=== PATIENT | female | born 1955 | race Caucasian/White ===

== ENCOUNTER 2016-10-19 06:21 | Inpatient (IN) | payer OTHER ==
[2016-10-11 10:08] VITALS: BMI 35.0
--- NOTE | 2016-10-11 10:40 | PAT Medication Instructions ---
Service Date Oct 11, 2016. Current Home Medication List Bupropion (Wellbutrin), 100 MG PO QAM Diazepam (Valium), 5 MG PO BID PRN for ANXIETY Hydrocodone/Acetaminophen 10MG/325MG (Holden 10MG/325MG), 1 TAB PO Q4H PRN for Pain Naproxen (Aleve), 440 MG PO PRN Triamterene/Hctz (Dyazide 37.5MG/25MG), 1 TAB PO QAM Venlafaxine Hcl (Effexor), 150 MG PO HS [Inhaler], 2 PUFFS INH Q4H PRN for clinical transformation specialist Instructions For Your Scheduled Surgery - Check with surgeon for instructions: Naproxen (Aleve), 440 MG PO PRN - Hold the following medications the morning of surgery: Triamterene/Hctz (Dyazide 37.5MG/25MG), 1 TAB PO QAM - Take the following medications the morning of surgery with a sip of water: [Inhaler], 2 PUFFS INH Q4H PRN for RN Diazepam (Valium), 5 MG PO BID PRN for ANXIETY Bupropion (Wellbutrin), 100 MG PO QAM Hydrocodone/Acetaminophen 10MG/325MG (Holden 10MG/325MG), 1 TAB PO Q4H PRN for Pain (okay to take up to 4 hours prior to surgery if needed) - Take the following medications as scheduled the night before surgery: [Inhaler], 2 PUFFS INH Q4H PRN for RN Venlafaxine Hcl (Effexor), 150 MG PO HS Diazepam (Valium), 5 MG PO BID PRN for ANXIETY Hydrocodone/Acetaminophen 10MG/325MG (Holden 10MG/325MG), 1 TAB PO Q4H PRN for Pain If you have any questions please call us at [phone] (Lisa Escamilla PA-C) or [phone] or [phone]
--- NOTE | 2016-10-11 11:25 | DIAGNOSTIC IMAGING REPORT ---
TWO VIEW CHEST CLINICAL HISTORY: Preoperative examination. FINDINGS: PA and lateral chest radiographs are compared to study dated 11/25/2013. The cardiomediastinal silhouette is unremarkable. There is prominence of the left hilar soft tissues. Atherosclerotic calcification is noted in the thoracic aorta. Chronic interstitial thickening is similar to previous. No airspace consolidation or pleural effusion is identified. There is no pneumothorax. The skeletal structures are osteopenic. Degenerative change and mild scoliosis are noted in the thoracic spine. Cholecystectomy clips are identified in the right upper quadrant. IMPRESSION: 1. No active disease in the chest. 2. There is fullness of the left hilar soft tissues. This may be related to prominence of the pulmonary artery. Follow-up with a contrast-enhanced CT scan of the chest is recommended for further assessment and to exclude underlying adenopathy/lesion. Electronically signed by: Celso Delvalle M.D. 10/11/2016 11:23 AM Dictated Date/Time: 10/11/2016 11:20 AM
[2016-10-11 11:32] LABS: BASO % 0.7 %; BASO ABS # 0.05 K/uL (0-0.2); COMPLETE YES; EOS % 14.9 %; HEMATOCRIT 38.6 % (37-47); IG% 0.1 %; LYMPH % 25.3 %; MEAN CELL VOLUME 87.7 fL (80-100); MEAN CORPUSCULAR HEMOGLOBIN 29.8 pg (25-34); MEAN CORPUSCULAR HGB CONC 33.9 g/dl (32-36); MEAN PLATELET VOLUME 10.5 fL (7.4-10.4); MONO % 6.8 %; NEUT % 52.2 %; PLATELET COUNT 287 K/uL (130-400); WHITE BLOOD COUNT 7.11 K/uL (4.8-10.8)
[2016-10-11 11:32] LABS: URINE APPEARANCE CLEAR (CLEAR); URINE BILIRUBIN NEG (NEG); URINE COLOR YELLOW; URINE NITRITE NEG (NEG); URINE SPECIFIC GRAVITY 1.014 (1.000-1.030); UROBILINOGEN NEG (NEG)
[2016-10-11 11:40] LABS: PROTHROMBIN TIME (PATIENT) 10.7 SECONDS (9.0-12.0)
[2016-10-11 11:48] LABS: MANUAL MICROSCOPIC REQUIRED? NO; REVIEW REQ? NO
[2016-10-11 12:01] LABS: BUN/CREATININE RATIO 17.1 (10-20); CALCIUM 9.4 mg/dl (8.5-10.1); CREATININE 0.97 mg/dl (0.60-1.20); POTASSIUM 3.2 mmol/L (3.5-5.1)
--- NOTE | 2016-10-17 13:52 | HISTORY & PHYSICAL EXAMINATION ---
DATE OF ADMISSION: 10/19/2016 CHIEF COMPLAINT: Primary osteoarthritis of the left knee. HISTORY OF PRESENT ILLNESS: Katherine is a pleasant 61-year-old female who has been dealing with chronic left knee pain. I did a right total knee arthroplasty on her 2-1/2 years ago and she has done very well from that. Unfortunately, she has continued to have left knee pain. X-rays and clinical examination are diagnostic for primary osteoarthritis of the knee. After failing years of conservative treatment, she has elected to proceed with a total knee arthroplasty. PAST MEDICAL HISTORY: Significant for depression and hypertension. PAST SURGICAL HISTORY: For carpal tunnel release, knee arthroscopy of the right knee, hysterectomy, multiple lumbar surgeries and a right total knee arthroplasty. ALLERGIES: None. FAMILY HISTORY: Noncontributory. MEDICATIONS: Include hydrocodone every 4 hours as needed for back pain, Effexor 150 mg at night and Dyazide 1 tablet in the morning. SOCIAL HISTORY: She is . She rarely drinks and she is mostly sedentary. REVIEW OF SYSTEMS: She complains of left knee pain. All other pertinent review of systems are negative. PHYSICAL EXAMINATION: GENERAL: She is awake, alert and oriented x3. She is in no apparent distress. She is very pleasant. HEENT: Pupils equal, round and reactive to light. Extraocular motion intact. Oral mucosa is pink and moist. HEART: Regular rate per radial pulse. LUNGS: Johanna symmetrically bilaterally with no audible breath sounds. ABDOMEN: Soft, nontender, nondistended. MUSCULOSKELETAL: On physical examination of the left knee, she does have a mild effusion. She has limited range of motion. She has range of motion from about 5-110 degrees. She has significant tenderness to palpation along the medial joint line. IMAGING DATA: X-rays of the left knee do show advanced osteoarthritis mostly involving the medial compartment of the left knee. IMPRESSION: Primary osteoarthritis of the left knee. PLAN: We will proceed with a [employer] Vanguard total knee arthroplasty. Postoperatively, she will be started on aspirin for DVT prophylaxis and discharged to general orthopedic floor for postoperative medical management. She will likely be discharged to home with [facility] health.
[2016-10-19] VITALS (8 sets, daily range): BP systolic 108–143; BP diastolic 72–95; PULSE 66–100; TEMP 36.4–36.9; O2SAT 91–98; Ht 157.5 cm; Wt 86.3 kg
[~2016-10-19] VITALS: Ht 157.5 cm; Wt 86.3 kg
--- NOTE | 2016-10-19 06:18 | History & Physical Bridge Note ---
H&P Re-Evaluation Bridge Note: I have examined the patient, reviewed the History & Physical and in the interval since the performance of the History & Physical I have noted the following changes of clinical significance: No changes noted
[~2016-10-19 06:21] MED LIST: ACETAMINOPHEN 500 MG TAB PO SCH; BUPR-83 PO; CEFAZOLIN 2000 MG/60 ML D5W 60 ML IV SCH; DIAZ-165 PO; FAMOTIDINE 20 MG TAB PO SCH; GABAPENTIN 300 MG CAP PO SCH; HYDR-4079 PO; INHALER INH; LACTATED RINGER'S 1000ML 1,000 ML IV SCH; LACTATED RINGER'S 1000ML IV SCH; LACTATED RINGER'S 500 ML IV SCH; NAPR1TAB9 PO; ROPIVACAINE 5MG/ML 30 ML 150 MG, BUPIVACAINE/EPINEPHR 0.5% MPF 30 ML, KETOROLAC TROMETH... INFIL SCH; TRIA37.5 PO; VENL100T2 PO
[2016-10-19] MEDS ORDERED: BUPIVACAINE 0.5 % 5 MG/1 ML PF 10ML VIAL ONE (06:23)
[2016-10-19] MEDS ORDERED: BUPIVACAINE 0.25% 30 ML VIAL ONE (06:23)
[2016-10-19] MEDS ORDERED: ONDANSETRON INJ 2 MG/ML 2 ML VIAL ONE (07:27)
[2016-10-19] MEDS ORDERED: LIDOCAINE HCL 2% 2 ML VIAL (20MG/ML) ONE (07:27)
[2016-10-19] MEDS ORDERED: PROPOFOL IV EMULSION 10 MG/ML 20 ML VIAL IV ONE ×2 (07:27→10:10)
[2016-10-19] MEDS ORDERED: FENTANYL CITRATE INJ 50 MCG/1 ML 2 ML VIAL ONE (07:28)
[2016-10-19] MEDS ORDERED: MIDAZOLAM HCL 1 MG/ML 2ML VIAL ONE (07:28)
[2016-10-19] MEDS: TRANEXAMIC ACID INJ 1,000 MG in SODIUM CHLORIDE 0.9% 100ML 100 ML IV SCH ×2 (08:10→11:38)
[2016-10-19] MEDS ORDERED: ONDANSETRON INJ 2 MG/ML 2 ML VIAL IV PRN (08:45)
[2016-10-19] MEDS ORDERED: KETOROLAC TROMETHAMINE 30 MG/ML VIAL IV. PRN (08:45)
[2016-10-19] MEDS ORDERED: EpHEDrine SULFATE INJ 50 MG/ML AMP IV PRN (08:45)
[2016-10-19] MEDS ORDERED: ATROPINE SULFATE 0.1 MG/ML 5ML SYR IV PRN (08:45)
[2016-10-19] MEDS ORDERED: HYDROmorphone INJ 2 MG/ML SYR/VIAL IV PRN (08:45)
[2016-10-19] MEDS ORDERED: PHENYLEPHRINE 100MCG/ML 5ML SYR IV PRN (08:45)
[2016-10-19] MEDS ORDERED: ORTHO JOINT ANESTHETIC ONE (09:09)
[2016-10-19] MEDS ORDERED: PHENYLEPHRINE 100MCG/ML 5ML SYR ONE (09:57)
[2016-10-19] MEDS ORDERED: BACITRACIN 50000 UNIT VIAL IR ONE (10:02)
--- NOTE | 2016-10-19 10:44 | [facility] Post Operative Brief Note ---
Immediate Operative Summary Operative Date Oct 19, 2016. Pre-Operative Diagnosis Primary osteoarthritis of left knee Post-Operative Diagnosis Same as preoperative diagnosis Procedure(s) Performed Left Total Knee Arthroplasty Surgeon Dr Gómez Target Setter Surgeon(s) Washington Queen PA-C Estimated Blood Loss 5ml Findings as above Specimens A: left knee bone and tissue Complication(s) None Disposition Recovery Room / PACU
[2016-10-19] MEDS ORDERED: BISACODYL 10 MG SUPP PR PRN (10:45)
[2016-10-19] MEDS ORDERED: MAGNESIUM HYDROXIDE SUSP 30 ML UDC PO PRN (10:45)
[2016-10-19] MEDS ORDERED: SOD PHOSPHATE/SOD BIPHOSPHATE ENEMA 132 ML BTL PR PRN (10:45)
--- NOTE | 2016-10-19 11:09 | OPERATIVE REPORT ---
DATE OF OPERATION: 10/19/2016 PREOPERATIVE DIAGNOSIS: Primary osteoarthritis of the left knee. POSTOPERATIVE DIAGNOSIS: Same. PROCEDURE: Left total knee arthroplasty. SURGEON: Dr. Hussein Gómez. PSYCHIATRIC REGISTERED NURSE: Washington Queen PA-C, whose assistance was necessary for positioning of the knee and helping with retraction. ANESTHESIA: Spinal with a left adductor nerve block. COMPLICATIONS: None. CONDITION: Stable to PACU. INDICATIONS: Katherine is a pleasant 61-year-old female who has been dealing with chronic pain in her left knee. She underwent a right total knee arthroplasty a couple years ago and has done very well with that. She elected to proceed with a left total knee replacement. On 10/19/2016, she arrived at [facility] for the above procedure. She was seen in the preoperative holding area and the operative extremity was identified and signed. She was given a preoperative antibiotic and a spinal anesthetic and a left adductor nerve block. She was taken back to the operating room, laid on the table in supine position, and put under basic sedation. The left knee was then prepped and draped in sterile fashion. Timeout was done, and the patient and operative extremity was properly identified. A midline incision was made directly over the patella. Dissection was taken down through the fascia and a medial parapatellar approach was used. The medial retinaculum was released, the fat pad was excised, and the knee was flexed. A drill was sent down the center of the femoral canal, followed by an intramedullary baltazar. Off that baltazar, a distal femoral cutting block was placed and 9 mm was resected off the distal femur at 5 degrees of valgus. A posterior referencing guide was then used and the femur measured to be a size 65. Two drill holes were placed in 3 degrees of external rotation and the 4-in-1 cutting block was impacted into place. Anterior, posterior and chamfer cuts were then made. The box cutting guide was attached and the box was resected for the posterior stabilizing component. The proximal tibia was exposed. A drill was sent down the center of the tibial canal, followed by an intramedullary baltazar. Off the baltazar, a proximal tibial resection guide was placed and 2 mm was resected off to the low medial side. Time was then spent removing any meniscal or ligament remnants from the posterior aspect of the knee and osteophytes were removed posteriorly. The tibia was then trialed and measured to be a size 71. The tibia was then pinned, drilled and punched. Trial components were placed. The knee was brought through a range of motion and felt to be stable. The patella was then everted and 8 mm was resected off the posterior aspect of the patella. The patella measured to be a size 31 and 3 drill holes were placed. The trial patella was used. The knee was brought through a range of motion and felt to be stable. All trials were then removed from the knee. The knee was then irrigated with 3 liters of normal saline solution with bacitracin. Surrounding soft tissues were then injected with 100 mL of orthopedic pain control cocktail. The tibial, femoral and patellar components were then cemented in place with Palacos-G cement. Several different polyethylene trials were used and a size 12 posterior stabilized bearing seemed to be the best fit. The final bearing was snapped into place and anterior bar was locked. The knee was brought through a full range of motion and felt to be stable. Two drains were placed. The extensor mechanism was closed with #2 FiberWire suture in the superior medial portion, followed by #1 Vicryl for the remaining portions. The skin was closed with 2-0 Vicryl, a 3-0 V-Loc suture and a Prineo dressing. She was then placed in a compressive Kyle wrap and taken to the postanesthesia care unit in stable condition. She tolerated the procedure well. I attest to the content of the Intraoperative Record and any orders documented therein. Any exceptio ns are noted below.
--- NOTE | 2016-10-19 11:22 | DIAGNOSTIC IMAGING REPORT ---
LEFT KNEE 2 VIEWS History: Left total knee arthroplasty. Degenerative arthritis. Postop. FINDINGS: The patient is status post a left total knee arthroplasty. The hardware is intact. No fracture or dislocation. Surgical drains are in place. IMPRESSION: Left total knee arthroplasty. No evidence for hardware complication. Electronically signed by: Bart Fisher M.D. 10/19/2016 11:20 AM Dictated Date/Time: 10/19/2016 11:20 AM
--- NOTE | 2016-10-19 11:34 | Anesthesiology Progress Note ---
Anesthesia Post Op Note Date & Time Oct 19, 2016 at 11:34 Vital Signs Pain Intensity: 0 Vital Signs Past 12 Hours Date Time Temp Pulse Resp B/P Pulse Ox O2 Delivery O2 Flow Rate FiO2 10/19/16 11:25 73 16 104/67 95 Mask 5 10/19/16 11:15 73 16 123/76 96 Mask 5 10/19/16 11:05 73 16 145/85 100 Mask 10 10/19/16 10:55 36.4 87 16 125/78 99 Mask 10 10/19/16 07:30 36.9 100 18 143/95 96 Room Air Notes Mental Status: alert / awake / arousable, participated in evaluation Pt Amnestic to Procedure: Yes Nausea / Vomiting: adequately controlled Pain: adequately controlled Airway Patency, RR, SpO2: stable & adequate BP & HR: stable & adequate Hydration State: stable & adequate Anesthetic Complications: no major complications apparent
[2016-10-19] MEDS: D5W AND 1/2NSS + 20MEQ KCL 1,000 ML IV SCH ×2 (13:39→23:30)
[2016-10-19] MEDS: KETOROLAC TROMETHAMINE 30 MG/ML VIAL IV. SCH ×2 (15:40→21:34)
[2016-10-19] MEDS: CEFAZOLIN IV 2,000 MG in DEXTROSE 5% 50ML 50 ML IV SCH (18:18)
[2016-10-19] MEDS: VENLAFAXINE HCL 50 MG TAB PO SCH (20:47)
[2016-10-19] MEDS: ONDANSETRON INJ 2 MG/ML 2 ML VIAL IV PRN (20:47)
[2016-10-19] MEDS: ASPIRIN 325 MG ECTAB PO SCH (20:48)
[2016-10-19] MEDS: DOCUSATE SODIUM 100 MG CAP PO SCH (20:48)
[2016-10-19] MEDS: SENNA 8.6 MG TAB PO SCH (20:48)
[2016-10-19] MEDS: DIAZEPAM 5MG TAB PO PRN (23:33)
[2016-10-19] MEDS: HYDROCODONE/ACETAMI 10/325 TAB PO PRN (23:33)
[2016-10-20] MEDS: CEFAZOLIN IV 2,000 MG in DEXTROSE 5% 50ML 50 ML IV SCH (02:02)
[2016-10-20] MEDS: METOCLOPRAMIDE HCL INJ 5 MG/ML 2 ML VIAL IV PRN ×2 (02:15→12:58)
[2016-10-20 03:12] VITALS: BP 114/74; PULSE 64; TEMP 36.4; O2SAT 96
[2016-10-20] MEDS: KETOROLAC TROMETHAMINE 30 MG/ML VIAL IV. SCH ×4 (04:04→21:42)
--- NOTE | 2016-10-20 06:41 | PROGRESS NOTE ---
DATE: 10/20/2016 CHIEF COMPLAINT: Status post left total knee arthroplasty postop day #1. PROGRESS: Katherine is seen and examined at bedside today. She was asleep when I came into the room. Overall, she has been doing fairly well. Her pain is controlled. She is a little bit nauseous but otherwise has no complaints. PHYSICAL EXAMINATION: LEFT KNEE: The dressing is clean and dry, the drain is to suction. She has active dorsiflexion and plantarflexion of her left ankle. LABORATORY DATA: H\T\H is pending for this morning. Vital signs are all stable on room air and 4.5 liters nasal cannula when she sleeps. She has been voiding on her own and has not had a bowel movement yet. X-rays postoperatively of the left knee showed the prosthesis to be in anatomic alignment without any evidence of fracture, dislocation or loosening. IMPRESSION: Status post left total knee arthroplasty postop day #1. PLAN: At this point, she is doing as well as expected. We will continue with pain control today. She will be up and walking with physical therapy. Tomorrow, we will change her dressing and pull the drain and likely discharge her to home.
[2016-10-20 06:45] LABS: MEAN CELL VOLUME 89.6 fL (80-100); MEAN CORPUSCULAR HEMOGLOBIN 29.2 pg (25-34); MEAN CORPUSCULAR HGB CONC 32.6 g/dl (32-36); MEAN PLATELET VOLUME 10.4 fL (7.4-10.4); PLATELET COUNT 222 K/uL (130-400); RED BLOOD COUNT 3.46 M/uL (4.2-5.4); WHITE BLOOD COUNT 9.48 K/uL (4.8-10.8)
[2016-10-20 06:53] VITALS: BP 121/84; PULSE 71; TEMP 36.9; O2SAT 96
[2016-10-20 06:58] LABS: BUN/CREATININE RATIO 15.4 (10-20); CALCIUM 8.8 mg/dl (8.5-10.1); CREATININE 0.99 mg/dl (0.60-1.20); POTASSIUM 3.9 mmol/L (3.5-5.1)
[2016-10-20] MEDS: TRIAMTERENE/HCTZ 37.5/25MG CAP PO SCH (08:57)
[2016-10-20] MEDS: PANTOprazole SOD 40 MG TAB PO SCH (08:57)
[2016-10-20] MEDS: ASPIRIN 325 MG ECTAB PO SCH ×2 (08:57→20:36)
[2016-10-20] MEDS: DOCUSATE SODIUM 100 MG CAP PO SCH ×2 (08:57→20:36)
[2016-10-20] MEDS: MULTIVITAMIN TAB PO SCH (08:57)
[2016-10-20] MEDS: ONDANSETRON INJ 2 MG/ML 2 ML VIAL IV PRN (08:57)
[2016-10-20] MEDS: HYDROCODONE/ACETAMI 10/325 TAB PO PRN ×3 (08:58→20:36)
[2016-10-20] MEDS: D5W AND 1/2NSS + 20MEQ KCL 1,000 ML IV SCH (10:10)
[2016-10-20] MEDS: MoRPHine SULFATE 2 MG/ML CARP IV PRN ×2 (11:10→13:17)
[2016-10-20 11:41] VITALS: BP 117/82; PULSE 75; TEMP 36.6; O2SAT 93
[2016-10-20] MEDS ORDERED: NURSING VERBAL MED ORDER ONE (14:30)
[2016-10-20] MEDS ORDERED: PROMETHAZINE HCL INJ 12.5 MG in SODIUM CHLORIDE 0.9% 50ML 50 ML IV PRN (14:45)
[2016-10-20 15:20] VITALS: BP 125/87; PULSE 69; TEMP 36.7; O2SAT 97
[2016-10-20] MEDS: VENLAFAXINE HCL 50 MG TAB PO SCH (20:36)
[2016-10-20] MEDS: SENNA 8.6 MG TAB PO SCH (20:36)
[2016-10-20] MEDS: DIAZEPAM 5MG TAB PO PRN (20:36)
[2016-10-20 22:57] VITALS: BP 96/59; PULSE 81; PULSE 82; TEMP 37.2; O2SAT 96
[2016-10-21] MEDS: KETOROLAC TROMETHAMINE 30 MG/ML VIAL IV. SCH ×2 (04:00→10:27)
[2016-10-21 06:56] VITALS: BP 149/85; PULSE 82; TEMP 37.6; O2SAT 92
[2016-10-21] MEDS: ONDANSETRON INJ 2 MG/ML 2 ML VIAL IV PRN (07:15)
[2016-10-21] MEDS: ASPIRIN 325 MG ECTAB PO SCH ×2 (08:44→21:42)
[2016-10-21] MEDS: TRIAMTERENE/HCTZ 37.5/25MG CAP PO SCH (08:44)
[2016-10-21] MEDS: DOCUSATE SODIUM 100 MG CAP PO SCH ×2 (08:44→21:42)
[2016-10-21] MEDS: PANTOprazole SOD 40 MG TAB PO SCH (08:44)
[2016-10-21] MEDS: MULTIVITAMIN TAB PO SCH (08:44)
[2016-10-21] MEDS: HYDROCODONE/ACETAMI 10/325 TAB PO PRN ×4 (08:46→23:32)
[2016-10-21] MEDS ORDERED: HYDR-4079 PO (10:37)
--- NOTE | 2016-10-21 10:38 | Discharge Instructions ---
Discharge Instructions Admission Reason for Admission: Left Knee Osteoarthritis, Arthralgia Of Lower Leg Discharge Discharge Diagnosis / Problem: Left Total knee Discharge Goals Goal(s): Decrease discomfort, Improve function Activity Recommendations Activity Limitations: resume your previous activity Shower/Bathe: may shower/bathe in 3 days . Instructions / Follow-Up Instructions / Follow-Up May shower on Saturday. Follow-up in 2 weeks Current Hospital Diet Patient's current hospital diet: Regular Diet Discharge Diet Recommended Diet: Regular Diet Procedures Procedures Performed: Left Total Knee Arthroplasty Pending Studies Studies pending at discharge: no Medical Emergencies . Who to Call and When: Medical Emergencies: If at any time you feel your situation is an emergency, please call 911 immediately. . Non-Emergent Contact Non-Emergency issues call your: Surgeon Call Non-Emergent contact if: wound has increased drainage, wound has increased redness . "Provider Documentation" section prepared by Hussein Gómez. VTE Core Measure Inpt VTE Proph given/why not?: Other Anticoagulation (Aspirin 325 twice a day for 6 weeks)
--- NOTE | 2016-10-21 11:14 | PROGRESS NOTE ---
DATE: 10/21/2016 CHIEF COMPLAINT: Status post left total knee arthroplasty postop day #2. PROGRESS: Katherine was seen and examined at bedside today. Overall, she is doing fairly well. She is having some pain in her knee, but it is not too bad. She has been ambulating well with physical therapy. She has no other complaints. PHYSICAL EXAMINATION: RIGHT KNEE: The dressing is changed and the drain has been pulled. She had a little bit of bleeding on the very inferior aspect of the Prineo dressing. She is otherwise neurovascularly intact. IMPRESSION: Status post left total knee arthroplasty postop day #2. PLAN: At this point, she is doing about as well as expected. She wants to do steps with physical therapy before she goes home. As long as she passes therapy later today, she can be discharged to home on oral hydrocodone.
--- NOTE | 2016-10-21 14:25 | DISCHARGE SUMMARY ---
DISCHARGE DIAGNOSIS: Primary osteoarthritis of the left knee. PROCEDURE: Left total knee arthroplasty on 10/19/[address] Hussein Gómez. DISCHARGE INSTRUCTIONS: 1. Hydrocodone 10/325 every 4 hours as needed for pain. 2. Aspirin 325 mg twice a day for DVT prophylaxis. 3. Wellbutrin 100 mg daily. 4. Valium 5 mg twice a day as needed for anxiety. 5. Aleve 440 mg as needed. 6. Dyazide 37.5/25 mg daily. 7. Effexor 150 mg at night. 8. January shower on Saturday. 9. Start outpatient physical therapy this week. 10. Call the office of Dr. Gómez with any questions or concerns. 11. Follow up with Dr. Gómez in 2 weeks. HOSPITAL COURSE: Katherine is a pleasant 61-year-old female, who presented to my office with complaints of left knee pain. X-rays and clinical examination were diagnostic for primary osteoarthritis of her left knee. After failing years of conservative treatment, she elected to undergo a left total knee arthroplasty. I did do a right total knee replacement on her about 2 years ago. On 10/19/2016, she arrived at [facility] and underwent a left knee replacement without complications. She had a spinal anesthetic and a left adductor nerve block. Postoperatively, she was placed in a compressive dressing and discharged to general orthopedic floor. She was kept on aspirin for DVT prophylaxis. The first day, her H\T\H was 10.1 and 31.0. She was able to be up and ambulating with physical therapy. She was a little bit nauseous and that was her main complaint on day 1. On postop day #2, she continued to do fairly well. She worked well with physical therapy. Her pain was controlled on the oral hydrocodone. The dressing was changed, the drain was pulled and she was subsequently discharged to home with the above instructions.
[2016-10-21 15:08] VITALS: BP 135/83; PULSE 93; TEMP 37.1; O2SAT 95
[2016-10-21] MEDS: DIAZEPAM 5MG TAB PO PRN (15:21)
[2016-10-21] MEDS: SENNA 8.6 MG TAB PO SCH (21:42)
[2016-10-21] MEDS: VENLAFAXINE HCL 50 MG TAB PO SCH (21:43)
[2016-10-21 23:14] VITALS: BP 143/85; PULSE 89; TEMP 37; O2SAT 94
[2016-10-22] VITALS (7 sets, daily range): BP systolic 130–161; BP diastolic 83–112; PULSE 88–95; TEMP 37.4; O2SAT 96–97
[2016-10-22] MEDS: HYDROCODONE/ACETAMI 10/325 TAB PO PRN ×2 (07:27→12:33)
--- NOTE | 2016-10-22 07:38 | Anesthesiology Progress Note ---
Anesthesia Post Op Note Date & Time Oct 22, 2016 at 07:38 Vital Signs Pain Intensity: 8.0 Vital Signs Past 12 Hours Date Time Temp Pulse Resp B/P Pulse Ox O2 Delivery O2 Flow Rate FiO2 10/22/16 07:32 Room Air 10/21/16 23:14 37.0 89 20 143/85 94 Room Air Notes Mental Status: alert / awake / arousable, participated in evaluation Pt Amnestic to Procedure: Yes Nausea / Vomiting: adequately controlled Pain: adequately controlled Airway Patency, RR, SpO2: stable & adequate BP & HR: stable & adequate Hydration State: stable & adequate Anesthetic Complications: no major complications apparent pt had severe nausea and vomitting over the weekend. improved today
[2016-10-22] MEDS: DOCUSATE SODIUM 100 MG CAP PO SCH (07:48)
[2016-10-22] MEDS: PANTOprazole SOD 40 MG TAB PO SCH (07:48)
[2016-10-22] MEDS: MULTIVITAMIN TAB PO SCH (07:49)
[2016-10-22] MEDS: TRIAMTERENE/HCTZ 37.5/25MG CAP PO SCH (07:49)
[2016-10-22] MEDS: ASPIRIN 325 MG ECTAB PO SCH (07:49)
[2016-10-22] MEDS: MoRPHine SULFATE 2 MG/ML CARP IV PRN (07:52)
== END 2016-10-22 16:25 | disposition home or self-care (01) | DRG 470 ==
LOC: ENRESERVDT → ENRESERVTM → C.ACU 06:21 → C.3E 07:00
PROVIDERS: ADMIT Orthopaedic Surgery; ATTEND Orthopaedic Surgery
PROC: 0SRD0J9 Replacement of Left Knee Joint with Synthetic Substitute, Cemented, Open Approach (ICD-10-PCS; principal; 2016-10-19 09:00)
DX: M17.12 Unilateral primary osteoarthritis, left knee (principal); I10 Essential (primary) hypertension; Z96.651 Presence of right artificial knee joint; Z79.899 Other long term (current) drug therapy